=== PATIENT | male | born 1945 | race African-American/Black ===

== ENCOUNTER 2018-05-10 10:22 | Emergency (ER) | payer OTHER ==
[2018-05-10 10:31] VITALS: TEMP 98; BMI 37.1
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
[2018-05-10] MEDS ORDERED: METOPROLOL TARTRATE 25 MG TABLET (FP) PO ONE (11:08)
[2018-05-10 11:15] LABS: BASO % 0.8 % (0-2.0); EOS % 0.9 % (0-4.5); HEMATOCRIT 46.1 % (35.4-49); LYMPH % 36.7 % (8-40); MCH 29.4 pg (25.7-33.7); MCHC 32.6 g/dl (32.0-35.9); MEAN CELL VOLUME 90.4 fl (80-96); MEAN PLT VOLUME 8.1 fl (7.5-11.1); MONO % 15.5 % (3.8-10.2); NEUT % 46.1 % (42.8-82.8); PLATELET COUNT 226 K/MM3 (134-434); WHITE BLOOD COUNT 7.7 K/mm3 (4.0-10.0)
[2018-05-10] MEDS ORDERED: METOPROLOL TARTRATE 25 MG TABLET (FP) ONE (11:17)
[2018-05-10 11:26] LABS: INR 1.12 (0.83-1.09); PROTHROMBIN TIME (PATIENT) 12.7 SEC (9.7-13.0)
[2018-05-10] MEDS ORDERED: APIXABAN 5 MG TABLET PO ONE (11:32)
[2018-05-10 11:38] LABS: ALBUMIN 3.3 g/dl (3.4-5.0); ANION GAP 9 MMOL/L (8-16); BLOOD UREA NITROGEN 17 mg/dL (7-18); CALCIUM 9.2 mg/dL (8.5-10.1); CHLORIDE 106 mmol/L (98-107); CO2 29 mmol/L (21-32); GLUCOSE,RANDOM 114 mg/dL (74-106); POTASSIUM 5.1 mmol/L (3.5-5.1); SODIUM 144 mmol/L (136-145)
[2018-05-10 11:45] LABS: ALK PHOS 92 U/L (45-117); BILIRUBIN,TOTAL 0.3 mg/dL (0.2-1.0); CREATININE 1.1 mg/dL (0.55-1.3); N-TERMINAL BNP 1148.34 pg/ml (5-125); SGOT/AST 10 U/L (15-37); SGPT/ALT 19 U/L (13-61); TOT PROT 7.2 g/dl (6.4-8.2)
[2018-05-10 13:08] VITALS: BP 140/64; PULSE 81
--- NOTE | 2018-05-10 14:30 | EKG ---
Test Reason : Blood Pressure : / mmHG Vent. Rate : 101 BPM Atrial Rate : 182 BPM P-R Int : 000 ms QRS Dur : 136 ms QT Int : 394 ms P-R-T Axes : 000 084 -16 degrees QTc Int : 510 ms ATRIAL FIBRILLATION WITH RAPID VENTRICULAR RESPONSE RIGHT BUNDLE BRANCH BLOCK ABNORMAL ECG NO PREVIOUS ECGS AVAILABLE Confirmed by LINDY JIMENEZ MD ([id number]) on 05/10/2018 2:30:37 PM Referred By: Confirmed By:LINDY JIMENEZ MD
== END 2018-05-10 13:41 | disposition home or self-care (01) ==
LOC: JER 10:22
DX: Z04.1 Encounter for examination and observation following transport accident (principal); V43.52XA Car driver injured in collision with other type car in traffic accident, initial encounter; Y93.89 Activity, other specified; Y92.410 Unspecified street and highway as the place of occurrence of the external cause; I48.91 Unspecified atrial fibrillation
CPT/HCPCS: 36415; 71045-TC-FY; 80053; 82550; 83880; 84484; 85025; 85610; 93005; 93010; 93971-TC; 99284-25